=== PATIENT | male | born 1995 | race Caucasian/White ===

== ENCOUNTER 2020-10-30 11:02 | Emergency (ER) | payer OTHER ==
[~2020-10-30] VITALS: Ht 167.6 cm; Wt 86.5 kg
[2020-10-30 11:18] VITALS: BP 151/96
--- NOTE | 2020-10-30 11:56 | NUR ---
RIGHT ANKLE +TRACE EDEMA AND PAIN 2/2 MGLF ON 10/28. PROVIDER AT BEDSIDE, PT ASSESSMENT AND POC REV AND QUESTIONS ANSWERED. CALL LIGHT W/I REACH
--- NOTE | 2020-10-30 12:57 | NUR ---
Patient/Caregiver given discharge instructions and they have confirmed that they understand the instructions. Patient ambulatory with steady gait.
== END 2020-10-30 13:02 | disposition home or self-care (01) ==
LOC: ED 12:55
DX: S93.401A Sprain of unspecified ligament of right ankle, initial encounter (principal); X58.XXXA Exposure to other specified factors, initial encounter; Y93.89 Activity, other specified; Y92.89 Other specified places as the place of occurrence of the external cause; Y99.8 Other external cause status
CPT/HCPCS: 99283